=== PATIENT | female | born 1980 | race Caucasian/White ===

== ENCOUNTER 2017-02-06 23:50 | Emergency (ER) | payer SELFPAY ==
[~2017-02-06] VITALS: Ht 157.5 cm; Wt 59.0 kg
[2017-02-07 00:01] VITALS: BP 152/111
[2017-02-07] MEDS ORDERED: HYDR-971 PO (00:09)
[2017-02-07] MEDS ORDERED: PENI500T PO (00:09)
--- NOTE | 2017-02-07 00:09 | PHYS DOC ---
Past Medical History Past Medical History: Anxiety Past Surgical History: , Tonsillectomy, Other Additional Past Surgical Histo: R breast cyst removed Alcohol Use: Occasionally Drug Use: None Adult General Chief Complaint Chief Complaint: DENTAL PROBLEM HPI HPI Patient is a 36 year old female who presents with dental pain. Patient states her symptoms started earlier this evening prior to arrival. Patient states that she is having severe pain in the right upper portion of her mouth. Patient states that she has severe dental decay in one of her molars in her right upper jaw which she believes is causing the pain. Patient denies any associated fevers , nausea, vomiting, or facial swelling. The patient states that the pain runs along the right portion of her upper jaw and face. Patient has not taken any medications to help with her symptoms. Patient rates her pain currently as 9 out of 10 on my exam. Review of Systems Review of Systems Constitutional: Denies fever or chills [] HENT: Dental pain, denies nasal congestion or sore throat [] Respiratory: Denies cough or shortness of breath [] Cardiovascular: No additional information not addressed in HPI [] GI: Denies abdominal pain, nausea, vomiting, bloody stools or diarrhea [] Musculoskeletal: Denies back pain or joint pain [] Integument: Denies rash or skin lesions [] Neurologic: Denies headache, focal weakness or sensory changes [] Current Medications Current Medications Current Medications Medications (Trade) Dose Ordered Sig/[facility] Start Time Stop Time Status Last Admin Dose Admin Acetaminophen/ Hydrocodone Bitart (Lortab 7.5/325) 1 tab 1X ONCE 02/07/17 00:30 02/07/17 00:31 02/07/17 00:11 1 TAB Penicillin V Potassium (Veetid) 500 mg 1X ONCE 02/07/17 00:30 02/07/17 00:31 02/07/17 00:10 500 MG Allergies Allergies Allergies Coded Allergies Type Severity Reaction Last Updated Verified No Known Drug Allergies 07/12/14 No Physical Exam Physical Exam Constitutional: Well developed, well nourished, no acute distress, non-toxic appearance. [] HENT: Normocephalic, atraumatic, bilateral external ears normal, oropharynx moist, to #3 broken with exposed pulp present, direct tenderness to palpation, no surrounding gingival fluctuance or erythema, nose normal. [] Neck: Normal range of motion, no tenderness, supple, no stridor. [] Lungs & Thorax: Bilateral breath sounds clear to auscultation [] Abdomen: Bowel sounds normal, soft, no tenderness, no masses, no pulsatile masses. [] Skin: Warm, dry, no erythema, no rash. [] ] Extremities: No tenderness, no cyanosis, no clubbing, ROM intact, no edema. [] Neurologic: Alert and oriented X 3, normal motor function, normal sensory function, no focal deficits noted. [] Current Patient Data Vital Signs Vital Signs Date Time Temp Pulse Resp B/P (MAP) Pulse Ox O2 Delivery O2 Flow Rate FiO2 02/07/17 00:01 98.1 98 12 152/111 (125) 100 Room Air 98.1 EKG EKG Not performed [] Radiology/Procedures Radiology/Procedures Not performed [] Course & Med Decision Making Course & Med Decision Making Pertinent Labs and Imaging studies reviewed. (See chart for details) Patient was started on hydrocodone and penicillin VK in the emergency department. Advised patient follow-up with a dentist in the next 3-5 days for further evaluation as patient's affected tooth likely will need to be removed. Patient will continue on outpatient treatment with hydrocodone and penicillin. Advised return to emergency department for any worsening symptoms. Patient was understanding and in agreement with treatment plan. Dragon Disclaimer Dragon Disclaimer This electronic medical record was generated, in whole or in part, using a voice recognition dictation system. Departure Departure Impression: Primary Impression: Pain due to dental caries Disposition: 01 HOME, SELF-CARE Condition: IMPROVED Referrals: NO PCP (PCP) Patient Instructions: Dental Pain Additional Instructions: Follow-up with a dentist in the next 3-5 days for reevaluation. Return to the emergency department for any worsening symptoms. Scripts Penicillin V Potassium (PENICILLIN V POTASSIUM) 500 Mg Tablet 1 TAB PO QID, #28 TAB Prov: CAMILA HENAO MD 02/07/17 Hydrocodone/Apap 5-325 (NORCO 5-325 TABLET) 1 Each Tablet 1-2 TAB PO Q4-6HRS Y for PAIN, #20 TAB Prov: CAMILA HENAO MD 02/07/17 CAMILA HENAO MD February 07, 2017 00:09
[2017-02-07] MEDS ORDERED: PENICILLIN V K 250 MG TABLET. PO ONE (00:30)
[2017-02-07] MEDS ORDERED: HYDROcodone/APAP 7.5/325MG 1 TAB TABLET PO ONE (00:30)
== END 2017-02-07 00:25 | disposition home or self-care (01) ==
LOC: ER 02-07 00:03
DX: K02.9 Dental caries, unspecified (principal); F41.9 Anxiety disorder, unspecified
CPT/HCPCS: 99283